=== PATIENT | male | born 1995 | race Caucasian/White ===

== ENCOUNTER 2025-04-20 21:50 | Emergency (ER) | payer SELFPAY ==
[~2025-04-20] VITALS: Ht 175.3 cm; Wt 84.0 kg
[2025-04-20 22:04] VITALS: TEMP 98.6; O2SAT 99
[2025-04-20 22:42] VITALS: BP 133/91; PULSE 119; RESP 16
[2025-04-20] MEDS: KETOROLAC 30MG/ML VIAL IM NR (22:42)
[2025-04-20] MEDS: DEXAMETHASONE 10 MG/ML VIAL IM NR (22:42)
[2025-04-20] MEDS ORDERED: IBUP-1455 MT (23:57)
== END 2025-04-21 00:47 | disposition home or self-care (01) ==
LOC: ER 21:50
DX: M79.671 Pain in right foot (principal); M79.672 Pain in left foot; I10 Essential (primary) hypertension; Z79.52 Long term (current) use of systemic steroids; Z88.0 Allergy status to penicillin
CPT/HCPCS: 99284; 96372; J1885; J1100